=== PATIENT | male | born 1960 | race Caucasian/White ===

== ENCOUNTER 2020-08-27 05:13 | Observation (INO) ==
--- NOTE | 2020-08-26 13:53 | Anesthesiology Consultation ---
Date of Service August 26, 2020 Assessment & Plan (1) Encounter for pre-operative examination: Chart Review Chart Review: Acceptable Risk for Surgery and Patient NOT seen in Pre Admission Testing covid neg 08/23/20 Consults Requested none History Surgery Operation Date: 08/27/20 10:15 Proposed Procedures p Left Total Knee Arthroplasty - Danny Liane Barton MD Height/Weight Height: 6 ft 1 in Weight: 141.974 kg Allergies Allergy/AdvReac Type Severity Reaction Status Date / Time No Known Allergies Allergy Verified 08/26/20 13:07 Medications Home Medications Medication Instructions Recorded Confirmed Last Taken amlodipine 10 mg PO QAM 05/28/20 08/26/20 Unknown aspirin [Aspirin Child] 81 mg PO QAM 05/28/20 08/26/20 Unknown dapagliflozin [Farxiga] 5 mg PO QAM 05/28/20 08/26/20 Unknown insulin glargine [Basaglar KwikPen 20 unit SUBCUT HS 05/28/20 08/26/20 Unknown U-100 Insulin] losartan 50 mg PO QAM 05/28/20 08/26/20 Unknown metoprolol succinate 50 mg PO QAM 05/28/20 08/26/20 Unknown multivitamin 1 tab PO QAM 05/28/20 08/26/20 Unknown potassium chloride 10 meq PO QAM 05/28/20 08/26/20 Unknown rosuvastatin 10 mg PO QAM 05/28/20 08/26/20 Unknown Past Medical History Medical History Diabetes mellitus, type 2 IDDM. Poorly controlled. A1C 10.8% on pre op labs 05/29/20. Hyperlipidemia Hypertension Morbid obesity with BMI of 40.0-44.9, adult Temporomandibular joint disorder wore braces 10yrs ago to help fix problem--slight issues "clenching" with stress, otherwise no further issues OF NOTE, HGB A1C WAS REDRAWN ON 08/16/20 AND WAS 6.9. Per primary care provider, patient is cleared for surgery. Past Family History Family History Grandmother (Maternal) Family history of diabetes mellitus Mother Family history of diabetes mellitus Other No family history of adverse response to anesthesia Past Surgical History Surgical History (Updated 08/26/20 @ 13:09 by Paulina Reardon RN) History of arthroscopy of left knee meniscus repair History of colonoscopy History of tonsillectomy History of wisdom tooth extraction Hx of local excision of skin lesion mole from shoulder Social History Smoking Status: Never smoker Do You Dip or Chew Tobacco: No Hx Alcohol Use: No Alcohol type: beer and hard liquor alcohol intake frequency: holidays/special occasions only Hx Substance Use: No substance use type: does not use Testing Laboratory Results Laboratory Tests 08/16/20 08/16/20 08/16/20 08:13 08:13 08:13 WBC 10.43 Hgb 16.6 Hct 49.9 Plt Count 266 INR 1.2 H APTT 28.4 Sodium 140 Potassium 3.8 Chloride 107 Carbon Dioxide 28 BUN 14 Creatinine 0.71 Glucose 104 H Electrocardiogram Date: 05/28/20 DICTATED BY: Agusto Rodriguez MD Test Reason : Blood Pressure : / mmHG Vent. Rate : 066 BPM Atrial Rate : 066 BPM P-R Int : 162 ms QRS Dur : 094 ms QT Int : 416 ms P-R-T Axes : 038 021 001 degrees QTc Int : 436 ms Normal sinus rhythm Normal ECG When compared with ECG of 30-DEC-2001 06:30, No significant change was found Confirmed by Agusto Rodriguez ([id number]) on 05/29/2020 2:26:57 PM
[2020-08-27] MEDS ORDERED: ROPIVACAINE 0.5% HCL/PF 150 MG, BUPIVACAINE 0.75% MPF 20 ML, EPINEPHrine 0.15 MG, Ketor... INFIL SCH (06:00)
[2020-08-27] MEDS ORDERED: CeleBREX 200 MG CAP PO SCH (06:00)
[2020-08-27] MEDS ORDERED: LR 60ML/HR IV SCH (06:00)
[2020-08-27] MEDS ORDERED: TRANEXAMIC ACID 1,000 MG **IV Pre-op IV SCH (06:00)
[2020-08-27] MEDS ORDERED: LR 500ML BOLUS, THEN 15ML/HR IV SCH (06:00)
[2020-08-27] MEDS ORDERED: TRANEXAMIC ACID 1,000 MG **IV Intra-op IV SCH (06:00)
[2020-08-27] MEDS ORDERED: BUPIVACAINE 0.25% 30 ML VIAL ONE (06:32)
[2020-08-27] MEDS ORDERED: BUPIVACAINE 0.5 % 5 MG/1 ML PF 10ML VIAL ONE (06:32)
[2020-08-27] MEDS ORDERED: MIDAZOLAM HCL 1 MG/ML 2ML VIAL ONE ×3 (06:38→07:19)
[2020-08-27] MEDS ORDERED: fentaNYL citrate 100 MCG/2 ML VIAL ONE (06:39)
[2020-08-27 06:49] LABS: INR 1.2 (0.9-1.1); Partial Thromboplastin Ratio 1.1; Partial Thromboplastin Time 28.5 Seconds (21.0-31.0); Prothrombin Time 12.1 Seconds (9.0-12.0)
[2020-08-27] MEDS ORDERED: fentaNYL citrate 100 MCG/2 ML VIAL IV PRN (07:02)
[2020-08-27] MEDS ORDERED: ONDANSETRON INJ 2 MG/ML 2 ML VIAL IV PRN ×2 (07:02→10:12)
[2020-08-27] MEDS ORDERED: ePHEDrine sulfate 50 MG/ML AMP IV PRN (07:02)
[2020-08-27] MEDS ORDERED: ATROPINE SULFATE 0.1 MG/ML 10ML SYR IV PRN (07:02)
[2020-08-27] MEDS ORDERED: ORTHO JOINT ANESTHETIC ONE (07:03)
--- NOTE | 2020-08-27 07:03 | History & Physical Bridge Note ---
Date of Service August 27, 2020 History & Physical Bridge Note I have examined the patient, reviewed the History & Physical and in the interval since the performance of the History & Physical I have noted the following changes of clinical significance: no changes noted Patient is aware of the risks, is asymptomatic, and tested negative for COVID- 19.
[2020-08-27] MEDS ORDERED: PROPOFOL IV EMULSION 10 MG/ML 20 ML VIAL IV ONE ×3 (07:25→08:22)
[2020-08-27] MEDS ORDERED: ONDANSETRON INJ 2 MG/ML 2 ML VIAL ONE (07:25)
--- NOTE | 2020-08-27 09:47 | Post Operative Brief Note ---
Immediate Post Op Note v1 Date of Surgery August 27, 2020 Pre & Post Diagnosis Operation Date: 08/27/20 07:00 Pre-Op Diagnosis: Left Knee Osteoarthritis Post-Op Diagnosis: Left Knee Osteoarthritis I identified the patient and participated in the time-out.: Yes Procedure Operation Date: 08/27/20 07:00 Actual Procedures p Left Total Knee Arthroplasty(Left) - Danny Barton MD Surgeon Danny Barton MD Data Lead Rony Sy PA-C (No fellow avail) Estimated Blood Loss 50 Findings Consistent with Post-Op Diagnosis Fluids 1000 cc Specimens Left knee contents Anesthesia Type MAC Spinal Regional Complications none
--- NOTE | 2020-08-27 09:47 | Operative Report ---
Post Operative Report Pre & Post Diagnosis Operation Date: 08/27/20 07:00 Pre-Op Diagnosis: Left Knee Osteoarthritis Post-Op Diagnosis: Left Knee Osteoarthritis I identified the patient and participated in the time-out.: Yes Procedure Operation Date: 08/27/20 07:00 Actual Procedures p Left Total Knee Arthroplasty(Left) - Danny Barton MD Surgeon Danny Barton MD Mental Health Specialist Rony yS PA-C (No fellow avail) Estimated Blood Loss 50 Findings See Below Examined Under Anesthesia: ROM -- There was 10 degrees to 105 degrees of flexion Ligamentous examination -- revealed stable Best, posterior drawer, varus and valgus stress at 0 and 30 degrees. Outerbridge Type IV changes of Medial compartment, Patellofemoral compartment and LFC. Fluids 1000 cc Specimens Left knee contents Anesthesia Type MAC Spinal Regional Complications none Indications This is a 60-year-old male who has clinical and radiographic findings consistent with osteoarthritis of the a left knee. I recommended that a left total knee replacement be performed. The patient understands the risks of surgery, which include but not limited to: bleeding, infection, re-operation, damage to nerves and arteries, continued knee pain, knee stiffness, DVT, and . The patient understands all of these instructions and explanations, all of his questions have been satisfactorily addressed and the patient has elected to proceed. Inf ormed consent was signed. Description of Procedure IMPLANTS: 1. Femur: Triathlon #6 Left PS. 2. Tibia: Triathlon #6 [place]. 3. Insert: Triathlon #6 x 11 mm PS X3 poly. 4. Patella: Triathlon A38 x 11 mm X3 poly. 5. Simplex cement. Rony Sy PA-C is assisting with positioning, retracting, and closure due to fellow not available. PROCEDURE: The patient was taken to the Operating Room and placed in the supine position after spinal and adductor canal nerve block was administered. My initials and a multidisciplinary time-out were used to identify the left leg as the correct operative limb. A tourniquet was placed high in the thigh. Prior to the incision, 3 grams of intravenous Ancef were given. The left leg was then prepped and draped in a standard sterile fashion. An Esmarch was used to exsanguinate the leg and the tourniquet was inflated to 250 mmHg. The planned mid-line 20 cm incision was created exposing the extensor mechanism. The medial parapatellar arthrotomy was made and the patella was everted. The patella was addressed first. It was prepared by reaming from 28 mm down to 15 mm. An A38 button was found to fit best. The peg holes were made in the standard fashion. The femur was addressed next and the guide amanda was placed intramedullary. The initial cutting block was placed with 5 degrees of valgus and removing 10 mm for the distal cut. The cut was made and the 4-in-1 cutting block for a size 6 femur was placed. These cuts and the cuts to place the box were made in the standard fashion. Our attention was then drawn to the tibia cut with the external cutting guide, taking 2 mm from the medial low side. There was sufficient extension and flexion gap to fit a 11 mm spacer. A #6 Tibial baseplate fit well. A trial with a 11 mm spacer showed excellent stability in both flexion and extension, with good ligament balance, and thumbs free patellar tracking. Range of motion of 0-120 degrees. The tibial baseplate was prepped for the keel and stem. All the trial components were tested again, with good stability and thumbs free tracking of the patella. All components were removed. The tourniquet was deflated. Hemostasis was obtained. 90 ml of total knee cocktail were injected into the soft tissues and periosteum. A bone plug was placed in the femur and covered with bone wax. After a 15 minute break, the limb was exsanguinated again and the tourniquet was re-inflated. All surfaces were copiously irrigated prior to placement of the components. The femoral component followed by Tibial baseplate were cemented in place and an 11 mm trial placed. Next, the patellar button was placed using the same Simplex cement. Again with the 11 mm trial poly the range of motion and stability were unchanged. Once the cement had cured, the 11 mm X3 poly was placed. The extensor mechanism was closed with 1-0 and 0 Vicryl with the knee bent approximately 60 degrees in a standard fashion. The peritenon and deep fascia was closed with 2-0 Vicryl. The subcutaneous layer was closed with 3-0 Vicryl. The skin was closed with Zipline and shield. The limb was cleaned and dried. 4x4 dressing was placed over top followed by ABDs, sterile Webril, and a foot to thigh Suleman bandage. The patient was then transferred to the Recovery Room in stable condition. The sponge and needle counts were correct. POST-OP INSTRUCTIONS: The patient will be WBAT. The patient will be admitted to the hospital. The patient will use the knee immobilizer when ambulating and standing until good quad control is achieved. Labs will be obtained during the stay. DVT prophylaxis will included aspirin for 6 weeks, TEDs, and mechanical foot pumps. The dressing will be changed prior to their discharge or postop day #2 and covered with a Silverlon dressing, whichever comes first. I attest to the content of the Intraoperative Record and any orders documented therein. Any exceptions are noted below.
[2020-08-27] MEDS ORDERED: bisacodyL 10 MG SUPP PR PRN (10:12)
[2020-08-27] MEDS ORDERED: GLUCAGON FOR INJ 1 MG VIAL SQ PRN (10:12)
[2020-08-27] MEDS ORDERED: HYDROmorphone INJ 1 MG/ML SYRINGE IV PRN (10:12)
[2020-08-27] MEDS ORDERED: MAGNESIUM HYDROXIDE SUSP 30 ML UDC PO PRN (10:12)
[2020-08-27] MEDS ORDERED: CARBOHYDRATES FOR HYPOGLYCEMIA PO PRN (10:12)
[2020-08-27] MEDS ORDERED: METOCLOPRAMIDE HCL INJ 5 MG/ML 2 ML VIAL IV PRN (10:12)
[2020-08-27] MEDS ORDERED: GLUCOSE 40% GEL 15 GM TUBE PO PRN (10:12)
[2020-08-27] MEDS ORDERED: NALOXONE HCL 0.4 MG/1 ML VIAL/CARP IV PRN (10:12)
[2020-08-27] MEDS ORDERED: GLUCOSE 10 TABS/TUBE PO PRN (10:12)
[2020-08-27] MEDS ORDERED: diphenhydrAMINE Capsule 25 MG CAP PO PRN (10:12)
[2020-08-27] MEDS ORDERED: DEXTROSE 50% 50 ML SYRINGE IV PRN (10:12)
[2020-08-27] MEDS ORDERED: diphenhydrAMINE 50 MG/ML VIAL IV PRN (10:12)
--- NOTE | 2020-08-27 10:14 | Operative Report ---
Post Operative Report Pre & Post Diagnosis Operation Date: 08/27/20 07:00 Pre-Op Diagnosis: Left Knee Osteoarthritis Post-Op Diagnosis: Left Knee Osteoarthritis I identified the patient and participated in the time-out.: Yes Procedure Operation Date: 08/27/20 07:00 Actual Procedures p Left Total Knee Arthroplasty(Left) - Danny Barton MD Surgeon Danny Barton MD Dentist Attendant Rony Sy PA-C (No fellow avail) Estimated Blood Loss 50 Findings Consistent with Post-Op Diagnosis Specimens bone Complications none Description of Procedure See Dr Barton note. I was first sampler during entire case from prepping, limb and instrument handling, wound closure, dressings. I attest to the content of the Intraoperative Record and any orders documented therein. Any exceptions are noted below.
[2020-08-27] MEDS ORDERED: PHARMACY GLYCEMIC MGMT CONSULT PRN (11:20)
[2020-08-27] MEDS: SODIUM CHLORIDE 0.9% 1000ML 1,000 ML IV SCH ×2 (11:21→21:25)
--- NOTE | 2020-08-27 11:26 | Pharmacy Report ---
Pharmacy Glycemic Short Note 2 - Date of Service August 27, 2020 - Glycemic Short BSG Results (Last 24 hours): 08/27/20 08/27/20 05:31 10:06 POC Glucose 100 H 104 H OUTPATIENT ANTIDIABETIC REGIMEN: * Dapagliflozin (Farxiga) 5mg PO QAM * Lantus 20 units SQ HS * A1c = 6.9% on 08/16/20 ASSESSMENT: * 60yo T2DM male with adequate outpatient control per recent A1c * Pt is maintained on oral antidiabetic agents + basal insulin as an outpatient * Oral agents are not recommended for inpatient use d/t drug interactions, changing PO intake, and difficulty titrating for acute hyper/hypoglycemia. ADA recommends re-initiating outpatient oral agents 1-2 days prior to discharge if/when appropriate if they were held on admission. * Will hold oral agents for admission and utilize SQ basal bolus insulin regimen which is the recommended regimen for inpatient glycemic control. * Will resume outpatient dosing of Lantus 20 units SQ HS and start a weight based scale of Novolog per CF/CR. Will use adjusted body weight for NovoLog parameters since BMI > 35 * Goal is to maintain BSGs < 180 (ideally <150) to prevent post-op infectious complications PLAN FOR INPATIENT GLYCEMIC CONTROL: * Hold outpatient oral diabetes medications * Basal insulin * Lantus 20 units SQ HS {outpatient dosing} * Bolus insulin * NovoLog per scale ACHS or Q6hrs while NPO * Goal Range: Low 110 mg/dL - High 140 mg/dL * Correction Factor: 20 mg/dL/unit * Nutritional / Prandial insulin per carb ratio of 1 unit per 7 grams CHO consumed PLAN FOR DISCHARGE: * A1c is in goal range for patient based on age/co-morbidities. No changes needed to outpatient regimen
--- NOTE | 2020-08-27 11:29 | XRay Report ---
LEFT KNEE 2 VIEWS History: Left total knee arthroplasty. Degenerative arthritis. Postop. FINDINGS: The patient is status post a left total knee arthroplasty. The hardware is intact. No fract ure or dislocation. IMPRESSION: Left total knee arthroplasty. No evidence for hardware complication. ACT 112: Negative or not required by law. Electronically signed by: Te Baker M.D. 08/27/2020 11:27 AM
--- NOTE | 2020-08-27 11:33 | Anesthesiology Progress Note ---
Date of Service August 27, 2020 Anesthesia Post Procedure Vital Signs Vital Signs: Temp Pulse Pulse Resp BP Pulse Ox 08/27/20 10:40 50 L 11 L 109/63 94 08/27/20 10:30 36.4 C L 58 L 13 121/64 92 08/27/20 10:20 49 L 12 122/70 96 08/27/20 10:10 52 L 12 126/73 96 08/27/20 10:00 36.8 C 52 L 17 121/74 98 08/27/20 05:43 37.4 C 65 16 175/89 H 94 Pain Intensity Left Knee: Pain Intensity: 4 Transfer of Care Handoff Completed per policy Notes Mental Status: alert / awake / arousable and participated in evaluation Nausea / Vomiting: adequately controlled Pain: adequately controlled Airway Patency, RR, SpO2: stable & adequate BP & HR: stable & adequate Hydration State: stable & adequate Neuraxial Anesthesia: was administered and sensory block is resolving Anesthetic Complications: no major complications apparent and Pt Satisfied with anesthetic care
[2020-08-27] MEDS: INSULIN ASPART 100 UNITS/ML 3 ML PEN SC SCH ×3 (12:50→20:54)
[2020-08-27] MEDS: ACETAMINOPHEN 500 MG TAB PO SCH ×2 (13:25→21:40)
--- NOTE | 2020-08-27 14:58 | Orthopedic Progress Note ---
Date of Service August 27, 2020 Assessment & Plan (1) Osteoarthritis of left knee: POD #0 s/p L TKA, doing as well as expected. Resume diet. WBAT with walker. OOB to chair. Continue pain control. Check labs tomorrow. DVT prophylaxis: TEDs 3 weeks, foot pumps while in hospital, ASA 81 mg BID for 6 weeks. PT/OT. D/C planning. Present on Admission?: Yes Admission and Anticipated Discharge Date Admission Date: August 27, 2020 Subjective Doing well Review of Systems Review of Systems: All systems reviewed & are unremarkable except as noted in HPI & below Physical Exam Physical Exam: LLE: Sensation to light touch intact. Moving toes and ankle. Able to preform straight leg raise. Calf soft non-tender. Results & Data ([facility]) Vital Signs (Past 12 Hours) Vital Signs Temp Pulse Pulse Resp BP BP Pulse Ox 08/27/20 14:01 36.7 C 56 L 16 110/63 94 08/27/20 13:07 36.5 C 56 L 16 123/69 95 08/27/20 11:58 51 L 16 123/76 92 08/27/20 11:34 50 L 16 124/76 96 08/27/20 11:00 36.6 C 54 L 16 123/77 93 08/27/20 10:40 50 L 11 L 109/63 94 08/27/20 10:30 36.4 C L 58 L 13 121/64 92 08/27/20 10:20 49 L 12 122/70 96 08/27/20 10:10 52 L 12 126/73 96 08/27/20 10:00 36.8 C 52 L 17 121/74 98 08/27/20 05:43 37.4 C 65 16 175/89 H 94 Diagnostic Findings AP & Lateral left knee showed evidence of cemented left TKA.
[2020-08-27] MEDS: oxyCODONE HCL IR 5 MG TAB (IMMEDIATE RELEASE) PO PRN ×2 (15:44→20:53)
[2020-08-27] MEDS: ceFAZolin 2000MG 2,000 MG/15 ML SYR IV SCH (15:45)
[2020-08-27] MEDS: FERROUS GLUCONATE 324 MG TAB PO SCH (17:41)
[2020-08-27] MEDS: ASCORBIC ACID 500 MG TAB PO SCH (17:41)
[2020-08-27] MEDS: DOCUSATE SODIUM 100 MG CAP PO SCH (20:53)
[2020-08-27] MEDS: SENNA 8.6 MG TAB PO SCH (20:53)
[2020-08-27] MEDS ORDERED: INSULIN GLARGINE SOLOSTAR 100 UNITS/ML 3 ML PEN SC SCH (21:00)
[2020-08-28] MEDS: ceFAZolin 2000MG 2,000 MG/15 ML SYR IV SCH (00:48)
[2020-08-28] MEDS: oxyCODONE HCL IR 5 MG TAB (IMMEDIATE RELEASE) PO PRN ×3 (04:20→23:00)
[2020-08-28] MEDS: ACETAMINOPHEN 500 MG TAB PO SCH ×3 (05:45→23:00)
[2020-08-28 06:41] LABS: Hematocrit (blood only) 42.8 % (42-52); Hemoglobin 14.4 g/dL (14.0-18.0); Mean Corpuscular Hemoglobin 30.1 pg (25-34); Mean Corpuscular Hgb Conc 33.6 g/dL (32-36); Mean Corpuscular Volume 89.4 fL (80-100); Mean Platelet Volume 11.3 fL (7.4-10.4); Platelet Count 229 K/uL (130-400); RDW Coefficient of Variation 12.8 % (11.5-14.5); Red Blood Count 4.79 M/uL (4.7-6.1); White Blood Count 17.77 K/uL (4.8-10.8)
[2020-08-28 07:24] LABS: BUN Creatinine Ratio 24.3 (10-20); Calcium 8.4 mg/dl (8.5-10.1); Creatinine Clr Calc Pharmacy 189.9 ml/min; Est GFR (African American) 125.9 ml/min; Est GFR (Non-African American) 108.6 ml/min; Potassium 3.5 mmol/L (3.5-5.1)
[2020-08-28] MEDS: METOPROLOL SUCC 50MG EXT REL TAB PO SCH (08:23)
[2020-08-28] MEDS: ASPIRIN 81 MG ECTAB PO SCH ×2 (08:24→20:32)
[2020-08-28] MEDS: ROSUVASTATIN CALCIUM 10 MG TAB PO SCH (08:24)
[2020-08-28] MEDS: LOSARTAN POTASSIUM 50 MG TAB PO SCH (08:24)
[2020-08-28] MEDS: amLODIPine BESYLATE 5 MG TAB PO SCH (08:24)
[2020-08-28] MEDS: ASCORBIC ACID 500 MG TAB PO SCH ×2 (08:25→17:50)
[2020-08-28] MEDS: MULTIVITAMIN TAB PO SCH (08:25)
[2020-08-28] MEDS: POTASSIUM CHLORIDE 10 MEQ TABCR PO SCH (08:25)
[2020-08-28] MEDS: FERROUS GLUCONATE 324 MG TAB PO SCH ×2 (08:26→17:50)
[2020-08-28] MEDS: INSULIN ASPART 100 UNITS/ML 3 ML PEN SC SCH ×4 (08:27→21:56)
[2020-08-28] MEDS: DOCUSATE SODIUM 100 MG CAP PO SCH ×2 (08:27→20:32)
[2020-08-28] MEDS ORDERED: MULTIVITAMIN TAB PO SCH (09:00)
--- NOTE | 2020-08-28 09:22 | Orthopedic Progress Note ---
Date of Service August 28, 2020 Assessment & Plan (1) Osteoarthritis of left knee: POD #1 s/p L TKA, doing as well as expected. Resume diet. WBAT with walker. OOB to chair. Continue pain control. Change dressing POD #2 or prior to discharge whichever comes first, to Silverlon. DVT prophylaxis: TEDs 3 weeks, foot pumps while in hospital, ASA 81 mg BID for 6 weeks. PT/OT. D/C planning. Admission and Anticipated Discharge Date Admission Date: August 27, 2020 Subjective Had a tough night, doing better this am. Review of Systems Review of Systems: All systems reviewed & are unremarkable except as noted in HPI & below Physical Exam Physical Exam: LLE: Sensation to light touch intact. Moving toes and ankle. Able to preform straight leg raise from seated position, a little more difficult today. Calf soft non-tender. Dressing clean, dry, intact. Ambulating with walker from bathroom without assistance. Results & Data ([facility]) Vital Signs (Past 12 Hours) Vital Signs Temp Pulse Resp BP Pulse Ox 08/28/20 07:19 36.7 C 67 18 172/92 H 96 08/28/20 02:49 36.8 C 62 16 147/82 H 93 08/27/20 22:22 36.7 C 65 18 156/87 H 92 Laboratory Results 08/28/20 08/28/20 08/28/20 Range/Units 08:13 05:30 05:30 WBC 17.77 H (4.8-10.8) K/uL RBC 4.79 (4.7-6.1) M/uL Hgb 14.4 (14.0-18.0) g/dL Hct 42.8 (42-52) % MCV 89.4 (80-100) fL MCH 30.1 (25-34) pg MCHC 33.6 (32-36) g/dL RDW Std Deviation 42.0 (36.4-46.3) fL RDW Coeff of Aditya 12.8 (11.5-14.5) % Plt Count 229 (130-400) K/uL MPV 11.3 H (7.4-10.4) fL Sodium 142 (136-145) mmol/L Potassium 3.5 (3.5-5.1) mmol/L Chloride 109 H (98-107) mmol/L Carbon Dioxide 26 (21-32) mmol/L Anion Gap 7.0 (3-11) BUN 15 (7-18) mg/dl Creatinine 0.63 (0.6-1.4) mg/dl Est Cr Clr Drug Dosing 189.9 ml/min Est GFR ( Amer) 125.9 ml/min Est GFR (Non-Af Amer) 108.6 ml/min BUN/Creatinine Ratio 24.3 H (10-20) Glucose 97 (70-99) mg/dl POC Glucose 94 (70-99) mg/dl Calcium 8.4 L (8.5-10.1) mg/dl 08/27/20 08/27/20 08/27/20 Range/Units 20:37 17:07 11:57 WBC (4.8-10.8) K/uL RBC (4.7-6.1) M/uL Hgb (14.0-18.0) g/dL Hct (42-52) % MCV (80-100) fL MCH (25-34) pg MCHC (32-36) g/dL RDW Std Deviation (36.4-46.3) fL RDW Coeff of Aditya (11.5-14.5) % Plt Count (130-400) K/uL MPV (7.4-10.4) fL Sodium (136-145) mmol/L Potassium (3.5-5.1) mmol/L Chloride (98-107) mmol/L Carbon Dioxide (21-32) mmol/L Anion Gap (3-11) BUN (7-18) mg/dl Creatinine (0.6-1.4) mg/dl Est Cr Clr Drug Dosing ml/min Est GFR ( Amer) ml/min Est GFR (Non-Af Amer) ml/min BUN/Creatinine Ratio (10-20) Glucose (70-99) mg/dl POC Glucose 123 H 115 H 117 H (70-99) mg/dl Calcium (8.5-10.1) mg/dl 08/27/20 Range/Units 10:06 WBC (4.8-10.8) K/uL RBC (4.7-6.1) M/uL Hgb (14.0-18.0) g/dL Hct (42-52) % MCV (80-100) fL MCH (25-34) pg MCHC (32-36) g/dL RDW Std Deviation (36.4-46.3) fL RDW Coeff of Aditya (11.5-14.5) % Plt Count (130-400) K/uL MPV (7.4-10.4) fL Sodium (136-145) mmol/L Potassium (3.5-5.1) mmol/L Chloride (98-107) mmol/L Carbon Dioxide (21-32) mmol/L Anion Gap (3-11) BUN (7-18) mg/dl Creatinine (0.6-1.4) mg/dl Est Cr Clr Drug Dosing ml/min Est GFR ( Amer) ml/min Est GFR (Non-Af Amer) ml/min BUN/Creatinine Ratio (10-20) Glucose (70-99) mg/dl POC Glucose 104 H (70-99) mg/dl Calcium (8.5-10.1) mg/dl
--- NOTE | 2020-08-28 11:42 | Pharmacy Report ---
Pharmacy Glycemic Short Note 2 - Date of Service August 28, 2020 - Glycemic Short BSG Results (Last 24 hours): 08/27/20 08/27/20 08/27/20 11:57 17:07 20:37 Glucose POC Glucose 117 H 115 H 123 H 08/28/20 08/28/20 05:30 08:13 Glucose 97 POC Glucose 94 OUTPATIENT ANTIDIABETIC REGIMEN: * Dapagliflozin (Farxiga) 5mg PO QAM * Lantus 20 units SQ HS * A1c = 6.9% on 08/16/20 ASSESSMENT: 08/28 * Pt has received 30 units of insulin over the past 24hrs * 20 units of basal with Lantus * 10 units of bolus with NovoLog * AM fasting BSG is slightly below goal range for inpatient targets; will decrease basal insulin slightly * Post-prandial BSGs are in goal range; no change needed to CF/CR 08/27 * 60yo T2DM male with adequate outpatient control per recent A1c * Pt is maintained on oral antidiabetic agents + basal insulin as an outpatient * Oral agents are not recommended for inpatient use d/t drug interactions, changing PO intake, and difficulty titrating for acute hyper/hypoglycemia. ADA recommends re-initiating outpatient oral agents 1-2 days prior to discharge if/when appropriate if they were held on admission. * Will hold oral agents for admission and utilize SQ basal bolus insulin regimen which is the recommended regimen for inpatient glycemic control. * Will resume outpatient dosing of Lantus 20 units SQ HS and start a weight based scale of Novolog per CF/CR. Will use adjusted body weight for NovoLog parameters since BMI > 35 * Goal is to maintain BSGs < 180 (ideally <150) to prevent post-op infectious complications PLAN FOR INPATIENT GLYCEMIC CONTROL: * Hold outpatient oral diabetes medications * Basal insulin: decrease * Lantus 20 to 18 units SQ HS * Bolus insulin: no change * NovoLog per scale ACHS or Q6hrs while NPO * Goal Range: Low 110 mg/dL - High 140 mg/dL * Correction Factor: 20 mg/dL/unit * Nutritional / Prandial insulin per carb ratio of 1 unit per 7 grams CHO consumed PLAN FOR DISCHARGE: * A1c is in goal range for patient based on age/co-morbidities. No changes needed to outpatient regimen
[2020-08-28] MEDS: SENNA 8.6 MG TAB PO SCH (20:32)
[2020-08-28] MEDS ORDERED: INSULIN GLARGINE SOLOSTAR 100 UNITS/ML 3 ML PEN SC SCH (21:00)
[2020-08-28] MEDS ORDERED: MELATONIN 3 MG TAB PO PRN (22:55)
[2020-08-29] MEDS: ACETAMINOPHEN 500 MG TAB PO SCH (05:53)
[2020-08-29] MEDS: ASPIRIN 81 MG ECTAB PO SCH (08:19)
[2020-08-29] MEDS: MULTIVITAMIN TAB PO SCH (08:19)
[2020-08-29] MEDS: ROSUVASTATIN CALCIUM 10 MG TAB PO SCH (08:19)
[2020-08-29] MEDS: METOPROLOL SUCC 50MG EXT REL TAB PO SCH (08:19)
[2020-08-29] MEDS: LOSARTAN POTASSIUM 50 MG TAB PO SCH (08:19)
[2020-08-29] MEDS: ASCORBIC ACID 500 MG TAB PO SCH (08:19)
[2020-08-29] MEDS: POTASSIUM CHLORIDE 10 MEQ TABCR PO SCH (08:19)
[2020-08-29] MEDS: DOCUSATE SODIUM 100 MG CAP PO SCH (08:19)
[2020-08-29] MEDS: amLODIPine BESYLATE 5 MG TAB PO SCH (08:20)
[2020-08-29] MEDS: FERROUS GLUCONATE 324 MG TAB PO SCH (08:23)
[2020-08-29] MEDS: INSULIN ASPART 100 UNITS/ML 3 ML PEN SC SCH ×2 (08:45→12:31)
--- NOTE | 2020-08-29 10:22 | Orthopedic Progress Note ---
Date of Service August 29, 2020 Assessment & Plan (1) Osteoarthritis of left knee: POD #2 s/p L TKA, doing as well as expected. Continue DM2 diet. WBAT with walker. OOB to chair. Continue pain control with PO meds. Continue ice prn. Dressing changed to Silverlon. DVT prophylaxis: TEDs 3 weeks, foot pumps while in hospital, ASA 81 mg BID for 6 weeks. PT/OT. D/C planning to home today with HHPT. Admission and Anticipated Discharge Date Admission Date: August 27, 2020 Subjective Patient feels better today. No Nausea. Tolerating PO pain meds. Tolerated PO diet. Saw PT and OT this am. Has been up and walking with walker. Had BM and voiding. Denies f/c/s, CP, SOB. Ready to go home today. Physical Exam Physical Exam: VS stable. Appears comfortable. Finished with OT. Left knee post-op dressings removed. Zip line intact. No active drainage. NV intact B LE. Sensation intact to B LE. B calves are soft and nontender. 5/5 B EHL, TA, and gasroc strength. Neg homans. Results & Data ([facility]) Vital Signs (Past 12 Hours) Vital Signs Temp Pulse Resp BP Pulse Ox 08/29/20 07:26 36.8 C 72 18 156/84 H 95 08/28/20 22:35 37.0 C 70 18 157/76 H 94
[2020-08-29] MEDS: oxyCODONE HCL IR 5 MG TAB (IMMEDIATE RELEASE) PO PRN (11:04)
--- NOTE | 2020-08-29 16:55 | Discharge Summary ---
Date of Service August 29, 2020 Principal Diagnosis Left knee osteoarthritis Discharge Data Allergies Allergy/AdvReac Type Severity Reaction Status Date / Time No Known Allergies Allergy Verified 08/27/20 05:34 Procedures Performed Operation Date: 08/27/20 07:00 Actual Procedures p Left Total Knee Arthroplasty(Left) - Danny Barton MD Ordered Studies 08/27/20 05:00 US - OR guided needle placemen Routine Hospital Course (1) Osteoarthritis of left knee: 60-year-old male underwent a left total knee arthroplasty by Dr. Barton on 08/27/2020. He tolerated spinal anesthetic and adductor canal block. Surgery was without complication. He was transferred to the floor under observation. He received 24 hours of postop antibiotic, Ancef. Pharmacy was consulted for diabetic management with insulin sliding scale. Postop day 0 evening as well as postop day 1 patient is experiencing significant nausea. He was unable to participate in occupational and physical therapy. His vitals remained stable w ith slightly elevated blood pressure. Postop day 1 labs within normal limits. By a.m. of postop day 2 patient had improved nausea. Denied fevers chills sweats chest pain shortness of breath lightheadedness dizziness. He had a bowel movement was able to void. Tolerated a p.o. diabetic diet and p.o. fluids. Tolerated p.o. pain medication only. Was able to participate in OT and PT. His postop dressings were removed, and Zipline was intact. Silverlon waterproof dressing was applied. DVT prophylaxis while in house consisted of aspirin 81 mg twice a day knee-high DEEPAK hose and foot pumps. Patient was seen and was deemed stable to be discharged on postop day 2. He will be discharged to home with his with home health physical therapy. DVT prophylaxis at home will consist of aspirin 81 mg twice a day for a total of 6 weeks and knee-high DEEPAK hose. Pain medication will include [id number] Tylenol 1000 mg every 8 hours for mild to moderate pain, and oxycodone 5 mg 1 to 2 tablets every 4-6 hours for severe pain. Other medications will include vitamin C and iron twice a day for 2 weeks. All medication was sent to his pharmacy. Patient will be weightbearing as tolerated with a walker. He was instructed to contact the office if he has any questions or concerns or go to the emergency room. He has a follow-up scheduled in the office for 2 weeks postop. Please see discharge plan for further detailed in-depth instructions. Total Time Total Time Spent Total Time Spent (In Minutes): 25min Discharge Plan Discharge Items Patient Disposition: Home - Home Health Services Reason For Visit: Left Knee Osteoarthritis Discharge Diagnosis: Left knee Osteoarthritis Activity: Per Instructions section Bathing Comment: keep waterproof dressing intact; can shower, dont sumberge Exercise Comment: per phyiscal therapy exercise program Driving/Machine Use: no driving until cleared by surgeon Weightbearing: Full weightbearing Weightbearing Comment: as tolerated with a walker Non-emergency contact: Surgeon Call non-emergency contact if: your pain is not controlled, your temperature is above 101.5, your wound has increased redness and your wound has increased drainage Follow-up/Referrals: Gabo Coughlin DO [Primary Care Provider] - Clarissa Sy P.A.-C. [Physician [facility]] - 09/11/20 9:00 am Diet: Carb Consistent or DM2 Addtl Attending Provider Instructions: Post-operative Instructions Pain Expect to be in a fair amount of pain after surgery. Remember, our goal is not to eliminate your pain, but to make it tolerable. It is a good idea to stay ahead of your pain by taking the medications you were prescribed once you get home. Typically, the pain starts improving 3-7 days after surgery. You should start weaning off the narcotic pain medication (oxycodone) as soon as your pain improves. Please call our office if your pain is not adequately controlled. You can take tylenol 1000mg every 8hrs for mild to moderate pain. Ice Ice your operative site at least 5 times a day for 15-30 minutes at a time. Make sure you have a thin cloth between the ice or cooling unit and your skin to prevent wharton bite. This is especially important if you received a nerve block. Continue icing your operative site for the first 5-7 days after surgery, then as needed. Diet/Nausea/Vomiting Start by drinking clear liquids and eating crackers. If you can tolerate this, then you may resume your normal diet. If you feel nauseated or vomit, take Zofran/ondansetron (if prescribed). Please call our office if you have intractable nausea or vomiting, or, if after hours, you may go to the Emergency Room for help. Constipation Constipation is a common side effect of narcotic pain medication. If you have not had a bowel movement within 2 days after surgery, we recommend purchasing an over the counter laxative such as Milk of Magnesia, Dulcolax, or Miralax from a local pharmacy, and taking it as instructed. Call our clinic if any questions. Weight bearing and Range of Motion. Weightbearing as tolerated with walker. No restrictions with range of motion. Physical therapy Initially you will start with home health physical therapy. At our first visit with at our office we will provide you with script for outpatient physical therapy. Wound care and showering We will inspect your wound at your first post-operative visit, and may do a dressing change at that time. Most patients will be in a water-proof dressing that is removed 14 days after surgery. It is normal to see some dried blood on the dressing. Do not remove your dressing, paper strips or sutures yourself unless you are given permission. Showering is allowed the day after surgery. Do not scrub or remove any dressings. The wound should not be submerged underwater (i.e. in a bathtub or pool) until 4 weeks after surgery DEEPAK stockings If you were given white stockings, these are to be worn at all times except to shower and sleep (on both legs) for the first 2 weeks after surgery. We will discuss removal at your first follow-up appointment. Driving You may not drive while taking narcotic pain medication. We will discuss return to driving at your first follow-up appointment. Return To Work Your return to work depends on what surgery was done and what type of work you do. Please bring any paperwork your employer needs completed to your first post-operative visit. Also, bring a description of your job duties, as this helps us to understand what risks you may face at work. Travel Avoid long distance travel (greater than 1 hour) in airplanes and cars for the first 6 weeks after surgery if possible. If you must travel, please let us know so we can discuss additional measures to prevent blood clots. Follow-up You should have a follow-up appointment already scheduled for 2 weeks after surgery. If not, please contact our office to make this appointment before you leave the hospital. When to call the office [phone] It is normal to have swelling and bruising in the limb that was operated on. This will improve with time. It is also normal to have fevers for the first 2 days after surgery. Reasons you should call your doctor include: Uncontrolled pain; Nausea, vomiting, or constipation that does not improve with medication; Fevers over 101.5, chills, sweats; Drainage or bleeding from the wound; Foul odor; Spreading areas of redness; Any other concerns. NEW MEDICATIONS: new medications will be sent to your pharmacy: oxycodone, iron, vit c, tylenol, aspirin. Pending Studies at Discharge: No Stand-Alone Forms: [facility], Opioid Pain Management, Smoking Cessation Medications and DC Order Prescriptions: New aspirin 81 mg Tablet,Delayed Release (Dr/Ec) 81 mg PO BID 42 Days Qty: 84 RF: 0 acetaminophen 500 mg Tablet 1,000 mg PO Q8 PRN (Reason: pain) Qty: 60 RF: 0 ascorbic acid (vitamin C) [Vitamin C] 500 mg Tablet 500 mg PO BIDM 14 Days Qty: 28 RF: 0 oxycodone 5 mg Tablet 5 - 10 mg PO Q4H PRN (Reason: pain) Qty: 30 RF: 0 ferrous gluconate 324 mg (38 mg iron) Tablet 324 mg PO BIDM 14 Days Qty: 28 RF: 0 Continued multivitamin Tablet 1 tab PO QAM RF: 0 losartan 50 mg Tablet 50 mg PO QAM RF: 0 potassium chloride 10 mEq Capsule, Extended Release 10 meq PO QAM RF: 0 metoprolol succinate 50 mg Tablet Extended Release 24 Hr 50 mg PO QAM RF: 0 amlodipine 10 mg Tablet 10 mg PO QAM RF: 0 rosuvastatin 10 mg Tablet 10 mg PO QAM RF: 0 Basaglar KwikPen U-100 Insulin 100 unit/mL (3 mL) Insulin Pen 20 unit SUBCUT HS RF: 0 Farxiga 5 mg Tablet 5 mg PO QAM RF: 0 Discontinued aspirin [Aspirin Child] 81 mg Tablet,Chewable 81 mg PO QAM RF: 0 Discharge Orders: Discharge Order (Routine); Ordered 08/29/20 Ordered By: Clarissa Sy Admission Data Admit Date/Time: 08/27/20 10:12 Attending Provider: Danny Barton Admit Provider: Danny Barton Primary Care Provider: Gabo Coughlin Other Providers: [facility],Home Healthcare Other Interventions: Discharge Summary Assessment (RN) Last Done: 08/29/20 12:36
== END 2020-08-29 13:55 | disposition home health service (06) ==
LOC: 3E 05:13 → ASU 05:13